=== PATIENT | male | born 1970 | race Caucasian/White ===

== ENCOUNTER → 2024-10-14 | Outpatient (CLI) | payer MEDICARE ==
[~2024-10-14] MED LIST: REGADENOSON 0.4 MG/5 ML SYRINGE IV PRN
--- NOTE | 2024-10-14 15:44 | CA ---
Lexiscan Nuclear Stress Test Report Name: Luis Antonio Chase Exam Date: 10/14/2024 11:59 Exam Location: [facility] Ht (in): Wt (lb): BSA: Ordering Phys: Margaret Burgess DO Referring Phys: Winifred Maria Technologist: RAW Age: 54 Gender: M : 1970 Procedure CPT: Indications: R07.89 other chest pain ICD-10 Codes: Patient History: Chest pain, shortness of breath, hypertension and tobacco use. Medications: MELOXACAM,,,, PRILOSEC,,,, D3,,, Meds past 24 hrs: Pretest Chest Pain: STRESS TEST Lexiscan Protocol Exercise Duration (min:sec): 02:[address] Depressions (mm): Angina Score: Carpenter Score: Resting HR (bpm): 76 Peak HR (bpm): 116 Resting BP (mmHg): 142 / 76 Peak BP (mmHg): 166 / 67 MPHR: 164 Target HR: 139 % MPHR: 71 METS: 1.0 Total Dose: Peak Dose: Atropine: Double Product: [id number] BP Response: Stress Termination: INFUSION COMPLETE Stress Symptoms: NO SYMPTOMS Stress Summary: ECG ANALYSIS Resting ECG: Stress ECG: CONCLUSIONS At baseline EKG showed normal sinus rhythm, normal axis, small Q-wave lead III and aVF with no significant ST or T wave abnormalities. Patient recieved IV infusion of Lexiscan 0.4mg and at peak infusion EKG showed no change from baseline. Conclusions: 1. Normal EKG response to Lexiscan infusion 2. Nuclear imaging to be reported separately. Dr. Kiran Morales DO (Electronically Signed) Final Date: 14 October 2024 15:43
--- NOTE | 2024-10-15 06:41 | NM ---
EXAMINATION TYPE: NM stress lexiscan cardiolite DATE OF EXAM: 10/15/2024 COMPARISON: NONE CLINICAL INDICATION: Male, 54 years old with history of R07.89 OTHER CHEST PAIN; TECHNIQUE: After the intravenous administration of 10.6 mCi Tc 99m Sestamibi - Cardiolite resting SP ECT images acquired 60 minutes post injection. The patient received 0.4mg Lexiscan, 25.1 mCi Tc 99m Sestamibi - Stress images obtained [address] injection FINDINGS: Review of stress and rest SPECT images demonstrates no distinct perfusion abnormality. Gated analysi s shows normal wall motion with an estimated left ventricular ejection fraction of 59 %. IMPRESSION: No scintigraphic evidence for reversible ischemia. [facility], , 10/15/2024 6:38 AM
== END | disposition home or self-care (01) ==
LOC: RADNMMAIN 09:03
PROVIDERS: ATTEND Family Medicine
DX: R07.89 Other chest pain (principal); I10 Essential (primary) hypertension; F17.210 Nicotine dependence, cigarettes, uncomplicated; R06.02 Shortness of breath
CPT/HCPCS: 93017; J2785; 78452

== ENCOUNTER 2025-01-01 11:06 | Day surgery (SDC) | payer MEDICARE, OTHER ==
[2025-01-01] MEDS: IV FLUID CONTINUATION 1,000 ML IV ONE (11:18)
[2025-01-01] MEDS: LACTATED RINGERS 1,000 ML IV SCH (11:21)
[2025-01-01 11:31] VITALS: TEMP 97
[2025-01-01] MEDS ORDERED: PROPOFOL 10 MG/ML 20 ML VIAL IV ONE (12:10)
--- NOTE | 2025-01-01 12:25 | P.PCN ---
Date of Procedure: 01/01/25 Procedure(s) Performed: BRIEF HISTORY: Patient is a 54-year-old pleasant white man scheduled for an elective colonoscopy as a part of screening for colon cancer. PROCEDURE PERFORMED: Colonoscopy. PREOPERATIVE DIAGNOSIS: Screening for colon cancer. IV sedation per Anesthesia. PROCEDURE: After informed consent was obtained, the patient, was brought into the endoscopy unit. IV sedation was administered by Anesthesia under continuous monitoring. Digital rectal examination was normal. Initially the Olympus CF-160 flexible video colonoscope was then inserted in the rectum, gradually advanced into the cecum without any difficulty. Careful examination was performed as the scope was gradually being withdrawn. Ileocecal valve and the appendiceal orifice were visualized and appeared normal. Prep was excellent. Mucosa of the cecum, ascending colon, transverse colon, descending colon, sigmoid colon, and rectum appeared normal. Retroflexion was performed in the rectum and small internal hemorrhoids were seen. The patient tolerated the procedure well. IMPRESSION: Normal-appearing colon from rectum to cecum with no evidence of colorectal neoplasia Small internal hemorrhoids. RECOMMENDATIONS: Findings of this examination were discussed with the patient as well as his family.. He was advised to have repeat screening colonoscopy in 10 years.
[2025-01-01 12:33] VITALS: PULSE 82; RESP 12
[2025-01-01 13:03] VITALS: BP 118/78
== END 2025-01-01 13:05 | disposition home or self-care (01) ==
LOC: ORWHC2ENDO 11:06
PROVIDERS: ATTEND Internal Medicine Gastroenterology
DX: Z12.11 Encounter for screening for malignant neoplasm of colon (principal); K64.8 Other hemorrhoids
CPT/HCPCS: J2704; G0121